=== PATIENT | male | born 1985 | race Caucasian/White ===

== ENCOUNTER → 2017-03-12 17:31 | Emergency (ER) | payer SELFPAY ==
[2017-03-12 17:52] VITALS: BP 142/107
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
== END | disposition home or self-care (01) ==
LOC: ED 17:31
DX: S61.250A Open bite of right index finger without damage to nail, initial encounter (principal); Y04.1XXA Assault by human bite, initial encounter; Y93.9 Activity, unspecified; Y92.9 Unspecified place or not applicable
CPT/HCPCS: 99281